=== PATIENT | female | born 1970 | race Caucasian/White ===

== ENCOUNTER 2020-12-20 09:43 | Outpatient (CLI) | payer OTHER, SELFPAY ==
--- NOTE | 2020-12-20 09:54 | MM_ITS ---
WS: [id number] BILATERAL DIGITAL SCREENING MAMMOGRAPHY WITH CAD CLINICAL INFORMATION: SCREENING HISTORY: Screening mammogram. No current complaints. COMPARISON: TECHNIQUE: Bilateral CC and MLO views. FINDINGS: The breasts are composed of heterogeneous fibroglandular density tissue, which can limit the detectio n of small underlying mass lesions. Biopsy clip left breast. No suspicious mass, asymmetry, calcifica tions, or architectural distortion. No evidence of malignancy. Punctate and lucent centered calcifica tions. MM/[id number] IMPRESSION: BI-RADS: 2-Benign FOLLOW UP: 1 Year Follow-up Recommend return to annual screening mammography.
== END 2020-12-20 09:44 | disposition home or self-care (01) ==
LOC: RADSHAW 09:47
PROVIDERS: PCP Family Medicine; Visit Provider Nurse Practitioner Family
DX: Z12.31 Encounter for screening mammogram for malignant neoplasm of breast (principal)
CPT/HCPCS: 77067

== ENCOUNTER 2021-09-10 11:40 | Emergency (ER) | payer MEDICAID, SELFPAY ==
[2021-09-10 12:08] VITALS: BP 141/91; PULSE 80; RESP 16; TEMP 36.8; O2SAT 98
[2021-09-10 12:19] VITALS: BP 140/99; PULSE 80; RESP 16; O2SAT 99
--- NOTE | 2021-09-10 12:22 | ED_ITS ---
HPI - Back Pain/Injury General: Chief Complaint: Back Pain/Injury Stated Complaint: MID THROUGH LOW BACK PAIN, L HIP PAIN Time Seen by Provider: 09/10/21 12:15 History of Present Illness: HPI Narrative: 51-year-old female comes in complaining of low back pain with radiation of pain to the left hip and leg at times been present for the last 6 months. She is not done anything in particular she can remember that exacerbates it or relieves it. She tried vario us [id number] medications she does not have any saddle paresthesias, she does not have any urinary retention or fecal incontinence. No recent trauma associated with any of the symptoms no sudden onset of the symptoms. It has slowly and progressively worsened. She has not previously been seen or evaluated as an outpatient for this. MD elicited complaint: back pain Pertinent past history: prior back pain Onset (ago): month(s) Timing: intermittent Severity: moderate Similar Symptoms Previously: Yes Quality: sharp Location: lumbar spine Radiation: left upper leg and left leg below the knee Exacerbating factors: sitting upright and walking Relieving factors: supine Associated symptoms: Deny abdominal pain, arthralgias, chills, change in bowel habits, difficulty walking, dysuria, fatigue, fecal incontinence, fever(s), hematuria, myalgias, nausea, numbness, syncope, tingling/numbness/burning, urinary frequency, urinary urgency, vomiting or weakness Treatments prior to arrival: NSAIDS Work related injury: No Review of Systems Const: Denies: fever(s), chills or fatigue ENMT: Denies: throat pain, ear or mastoid pain, nasal discharge or nasal congestion Card: Denies: syncope Resp: Denies: dyspnea, productive cough or non-productive cough GI: Denies: abdominal pain, nausea, vomiting, fecal incontinence or change in bowel habits : Denies: dysuria, urinary urgency or hematuria Skin/Breast: Denies: rash or pruritus Neuro: Denies: difficulty walking PFSH ED PFSH: Medical History (Updated 09/13/21 @ 15:33 by Manoj Peterson DO) Chronic low back pain Surgical History (Updated 09/13/21 @ 15:33 by Manoj Peterson DO) No significant past surgical history Social History (Updated 09/13/21 @ 15:33 by Manoj Peterson DO) Smoking and tobacco status: never smoked Alcohol intake: never Physical Exam Const: COMMON NORMALS: no acute distress GENERAL APPEARANCE: cooperative and comfortable ORIENTATION/CONSCIOUSNESS: Yes awake, Yes oriented to person, Yes oriented to place and Yes oriented to time HENMT: COMMON NORMALS: normocephalic, atraumatic, hearing grossly normal bilaterally and external ears normal HEAD & SCALP: normocephalic and atraumatic EXTERNAL EAR: Yes external ears normal Resp: COMMON NORMALS: normal respiratory effort, No retractions, No use of accessory muscles and clear to auscultation bilaterally AUSCULTATION: clear to auscultation bilaterally Cardio: COMMON NORMALS: regular rate, regular rhythm and No murmurs present (Cardio) RATE: regular rate RHYTHM: regular rhythm GI: COMMON NORMALS: Soft to palpation and No hepatosplenomegaly present AUSCULTATION: Yes normoactive bowel sounds PALPATION: Yes Soft to palpation, No Tenderness to palpation present (GI), No Guarding due to palpation present (GI) and Yes No hepatosplenomegaly present Extremity: COMMON NORMALS: normal to inspection, capillary refill normal, no clubbing, cyanosis or edema, no calf tenderness and no pedal edema Neuro: SENSORIUM/ORIENTATION: Yes oriented to person, Yes oriented to place and Yes oriented to time OTHER: DTRs reactive bilaterally, sensation normal, neurovasular intact.muscle strength 5/5 Skin: COMMON NORMALS: no rashes or lesions noted GENERAL SKIN EXAM: no rashes or lesions noted Course Vital Signs: Vital signs: Vital Signs Temperature 98.3 F 09/10/21 12:08 Pulse Rate 80 09/10/21 12:19 Respiratory Rate 16 09/10/21 12:19 Blood Pressure 140/99 09/10/21 12:19 Pulse Oximetry 99 09/10/21 12:19 MDM - Back Pain/Injury MDM Narrative: Medical decision making narrative: No findings suggestive of cauda equina syndrome. Patient has no saddle paresthesias no fecal incontinence no urinary retention this been a long ongoing thing we will start her on anti- inflammatories and steroids. Refer her to primary care. Discharge Plan Discharge Patient Disposition: Home Clinical Impression: Chronic low back pain Condition: Stable Prescriptions: New diclofenac sodium 75 mg tablet,delayed release (DR/EC) 75 mg PO Q12H PRN (Reason: pain) Qty: 20 RF: 0 tizanidine 4 mg capsule 4 mg PO Q8H PRN (Reason: muscle spasticity) Qty: 20 RF: 0 prednisone 20 mg tablet 20 mg PO BID Qty: 15 RF: 0 Discharge Orders: Discharge ED (Routine); Ordered 09/10/21 Ordered By: Manoj Peterson Referrals: Chaitanya Brown MD [Primary Care Provider] - Discharge Diet: Usual diet Discharge Activity: Limit activity as instructed Patient Instructions: Opioid Safety Activity Restrictions/Additional Instructions: Avoid stooping or bending avoid lifting over 10 pounds. senior property manager will make arrangements for you to see your primary care physician to work-up the chronic back pain as an outpatient. Coding Level of Care Code ED Document Management Technician for Chg Fwd Exam Detailed
--- NOTE | 2021-09-14 14:01 | DCPLANNER ---
manager generation had message to speak with patient about getting established with a primary care physician. manager generation called phone number [phone], unable to speak with patient and unable to leave a voicemail for patient.
== END 2021-09-10 12:46 | disposition home or self-care (01) ==
PROVIDERS: Emergency Provider Family Medicine; PCP Family Medicine
DX: G89.29 Other chronic pain (principal); M54.50 Low back pain, unspecified
CPT/HCPCS: 99282; 99291

== ENCOUNTER 2021-09-22 11:51 | Outpatient (CLI) | payer MEDICAID, SELFPAY ==
--- NOTE | 2021-09-22 12:12 | XR_ITS ---
WS: [id number] XR hip LT 2-3V wo/w pel* [id number] REASON FOR EXAM: LUMBAGO W/SCIATICA L SIDE FINDINGS: No fracture or focal bone abnormality. Left hip joint space is relatively well preserved. Minimal subchondral sclerosis and osteophyte formation of the acetabulum. No soft tissue abnormality. XR/XR hip LT 2-3V wo/w pel* [id number] IMPRESSION: Minimal change of osteoarthritis in the left hip.
--- NOTE | 2021-09-22 12:12 | XR_ITS ---
WS: [id number] XR lumbar spine 6V w f/e [id number] REASON FOR EXAM: LUMBAGO W/SCIATICA L SIDE FINDINGS: Mild rotatory scoliosis convex right. No significant vertebral body compression deformity or other focal vertebral body abnormality. Mild narrowing of the intervertebral disc spaces L1-L5. L5-S1 is well preserved. 6 mm of anterolisthesis of L4 in relation to L3. 5 mm of anterolisthesis of L3 in relation to L2. No spondylolysis. No significant vertebral body movement with flexion or extension. XR/XR lumbar spine 6V w f/e [id number] IMPRESSION: Degenerative spondylosis as above.
== END 2021-09-22 11:52 | disposition home or self-care (01) ==
LOC: RAD 12:05
PROVIDERS: PCP Family Medicine; Visit Provider Nurse Practitioner Family
DX: M54.42 Lumbago with sciatica, left side (principal); M47.816 Spondylosis without myelopathy or radiculopathy, lumbar region
CPT/HCPCS: 72114; 73502

== ENCOUNTER 2022-01-05 13:45 | Outpatient (CLI) | payer MEDICAID, SELFPAY ==
--- NOTE | 2022-01-05 13:54 | XRR_ITS ---
PROCEDURE INFORMATION: Exam: XR Right Knee Exam date and time: 01/05/2022 2:01 PM Age: 51 years old Clinical indication: Patient HX: History--pain in right knee; Additional info: Pain in R knee TECHNIQUE: Imaging protocol: XR Right knee. Views: 3 views. COMPARISON: No relevant prior studies available. FINDINGS: Bones/joints: There is no knee joint effusion. The joint spaces are maintained. There is no intra-articular body. No acute fracture or dislocation. No chondrocalcinosis. Soft tissues: There is no foreign body. XR/XR knee RT 3V* [id number] IMPRESSION: No acute bony abnormality.
== END 2022-01-05 13:46 | disposition home or self-care (01) ==
PROVIDERS: PCP Family Medicine; Visit Provider Nurse Practitioner Family
DX: M25.561 Pain in right knee (principal)
CPT/HCPCS: 73562

== ENCOUNTER 2022-07-27 15:41 | Outpatient (CLI) | payer MEDICAID, SELFPAY ==
--- NOTE | 2022-07-27 15:52 | XR_ITS ---
WS: [id number] Exam: XR lumbar spine 2-3V* [id number] Date/Time of Exam: 07/27/2022 3:58 PM Reason For Exam: LOW BACK PAIN Comparison 09/22/2021. No fracture or dislocation. Spondylosis. Degenerative disc narrowing from L1 to L5. Mild degenerative retrolisthesis of L2 on L3 and L3 on L4. Slight dextroscoliosis. Facet arthropathy at L4-5 and L5-S1 . 4 mm calcification superimposing the right kidney probably a renal stone. XR/XR lumbar spine 2-3V* [id number] IMPRESSION: 1. No acute fracture or malalignment. 2. Degenerative changes as detailed above. Mild scoliosis. 3. Probable right renal stone.
== END 2022-07-27 15:42 | disposition home or self-care (01) ==
PROVIDERS: PCP Nurse Practitioner Family; Visit Provider Nurse Practitioner Family
DX: M47.896 Other spondylosis, lumbar region (principal); M41.86 Other forms of scoliosis, lumbar region; M54.50 Low back pain, unspecified
CPT/HCPCS: 72100

== ENCOUNTER 2022-08-15 07:14 | Outpatient (CLI) | payer MEDICAID, SELFPAY ==
[2022-08-15 08:06] LABS: Estmated Average Glucose 108; Hemoglobin A1C 5.4 % (4.0-6.0)
[2022-08-15 08:07] LABS: Chol HDL Ratio 4.59 mg/dL (0.0-4.40); Cholesterol 211 mg/dL (0-200); HDL Cholesterol 46 mg/dL (60-100); LDL Cholesterol Calculated 144 mg/dL (50-129); LDL HDL Ratio 3.13 RATIO (0.00-3.22); Thyroid Stimulating Hormone 3.15 uIU/mL (0.27-4.20); Triglycerides 104 mg/dL (0-150)
== END 2022-08-15 07:15 | disposition home or self-care (01) ==
LOC: LAB 07:17
PROVIDERS: PCP Nurse Practitioner Family; Visit Provider Nurse Practitioner Family
DX: Z01.812 Encounter for preprocedural laboratory examination (principal); Z13.6 Encounter for screening for cardiovascular disorders
CPT/HCPCS: 36415; 80061; 83036; 84443

== ENCOUNTER 2022-08-17 10:55 | Outpatient (CLI) | payer MEDICAID, SELFPAY | END 2022-08-17 10:56 | disposition home or self-care (01) | LOC: SLEEP 08-18 10:56 | PROVIDERS: PCP Nurse Practitioner Family; Visit Provider Nurse Practitioner Family | DX: E66.9 Obesity, unspecified (principal) | CPT/HCPCS: G0399 ==

== ENCOUNTER 2022-10-05 08:03 | Outpatient (CLI) | payer MEDICAID, SELFPAY | END 2022-10-05 08:04 | disposition home or self-care (01) | LOC: RT 08:03 | PROVIDERS: PCP Nurse Practitioner Family; Visit Provider Family Medicine | DX: Z01.818 Encounter for other preprocedural examination (principal) | CPT/HCPCS: 94010; 94726; 94729 ==

== ENCOUNTER 2022-10-17 20:00 | Outpatient (CLI) | payer MEDICAID, SELFPAY | END 2022-10-17 20:01 | disposition home or self-care (01) | LOC: SLEEP 10-18 04:09 | PROVIDERS: PCP Nurse Practitioner Family; Visit Provider Nurse Practitioner Family | DX: G47.33 Obstructive sleep apnea (adult) (pediatric) (principal) | CPT/HCPCS: 95811 ==

== ENCOUNTER 2022-11-01 11:20 | Outpatient (CLI) | payer MEDICAID, SELFPAY ==
--- NOTE | 2022-11-01 11:28 | MM_ITS ---
WS: [id number] VIEWS: MLO and CC views both breasts. 3D digital tomosynthesis is also included in this exam. Comparison made with prior exam of 01/24/2012, 02/09/2014, 09/21/2017, 12/20/2020.. Findings: There was no sign of mass, architectural distortion or suspicious calcification in either breast. He terogeneously dense MM/[place] [id number] Impression: BI-RADS: 2-Benign FOLLOW-UP: 1 Year Follow-up This mammogram was also analyzed by the Computer Aided Detection System R2 Imag e Sustainability Purchasing Agent.
== END 2022-11-01 11:21 | disposition home or self-care (01) ==
LOC: RAD 11:23
PROVIDERS: PCP Nurse Practitioner Family; Visit Provider Nurse Practitioner Family
DX: Z12.31 Encounter for screening mammogram for malignant neoplasm of breast (principal)
CPT/HCPCS: 77063; 77067

== ENCOUNTER 2023-07-04 09:33 | Outpatient (CLI) | payer MEDICAID, SELFPAY ==
[2023-07-04 10:08] LABS: Basophils % 0.4 %; Eosinophils % 0.7 %; Hematocrit 37.1 % (36-47); Lymphocytes % 21.3 %; Mean Corpuscular HGB Conc 33.4 g/dL (30-55); Mean Corpuscular Hemoglobin 31.6 pg (27-33); Mean Corpuscular Volume 94.6 fl (85-98); Mean Platelet Volume 9.6 fL (7.4-10.4); Monocytes # 0.2 10^3/uL (0.2-0.9); Monocytes % 4.4 %; Neutrophils # 3.32 10^3/uL (1.8-7.7); Nucleated Red Blood Cells % 0 %; Platelet Count 237 10^3/cmm (157-399); Red Blood Count 3.92 10^6/uL (3.85-5.65); Red Cell Distribution Width 13.2 % (12.1-15.1); White Blood Count 4.55 10^3/uL (3.29-11.43)
[2023-07-04 10:43] LABS: Alanine Aminotransferase 23 U/L (0-33); Albumin Level 4.4 g/dL (3.5-5.2); Alkaline Phosphatase 32 U/L (35-105); Anion Gap 13.9 (5-19); Aspartate Amino Transferase 18 U/L (0-32); Blood Urea Nitrogen 11 mg/dL (6-20); Calcium 9.5 mg/dL (8.5-10.5); Calcium 9.6 mg/dL (8.5-10.5); Carbon Dioxide 27 mmol/L (22-29); Chloride 103 mmol/L (98-107); Chol HDL Ratio 4.37 mg/dL (0.0-4.40); Cholesterol 223 mg/dL (0-200); Ferritin 243 ng/mL (15-150); Globulin 2.5 g/dL (1.3-4.6); Glomerular Filtration Rate 128.6 mL/min (90-130); Glucose 104 mg/dL (65-115); HDL Cholesterol 51 mg/dL (60-100); Iron 85 ug/dL (37-145); LDL Cholesterol Calculated 152 mg/dL (50-129); LDL HDL Ratio 2.98 RATIO (0.00-3.22); Magnesium 2.1 mg/dL (1.7-2.3); Osmolality Calculated 290 mOsm/kg (285-295); Parathyroid Hormone 34.7 pg/mL (15-65); Potassium 3.9 mmol/L (3.5-5.1); Sodium 140 mmol/L (136-145); Total Bilirubin 0.3 mg/dL (0.15-1.2); Total Protein 6.9 g/dL (6.6-8.7); Triglycerides 101 mg/dL (0-150)
[2023-07-04 10:57] LABS: Estmated Average Glucose 94; Hemoglobin A1C 4.9 % (4.0-6.0)
[2023-07-04 10:58] LABS: 25 Hydroxy Vitamin D 51 ng/mL (30-100); Vitamin B12 1192 pg/mL (232-1245)
[2023-07-04 11:07] LABS: Folate Level > 20.0 ng/mL (4.8-37.3)
[2023-07-04 11:50] LABS: Percent Saturation 38.4 % (20-50); Total Iron Binding Capacity 221 mcg/dl; Unsaturated Iron Binding 136 ug/dL (112-347)
[2023-07-07 22:50] LABS: Vitamin K 865 pg/mL (130-1500)
[2023-07-09 21:29] LABS: Copper Level 101 mcg/dL (70-175)
[2023-07-13 10:33] LABS: Alpha-Tocopherol 23.9 mg/L; Beta-Gamma-Tocopherol 1.3 mg/L (<4.4); Vitamin A (Retinol) 71 mcg/dL (38-98)
== END 2023-07-04 09:34 | disposition home or self-care (01) ==
LOC: LAB 09:36
PROVIDERS: PCP Nurse Practitioner Family; Visit Provider Nurse Practitioner Family
DX: K91.2 Postsurgical malabsorption, not elsewhere classified (principal); Z98.84 Bariatric surgery status
CPT/HCPCS: 36415; 80053; 80061; 82306; 82310; 82525; 82607; 82728; 82746; 83036; 83540; 83550; 83735; 83970; 84100; 84446; 84590; 84597; 85025

== ENCOUNTER 2023-11-16 13:50 | Outpatient (CLI) | payer MEDICAID, SELFPAY ==
--- NOTE | 2023-11-16 14:05 | MM_ITS ---
WS: [id number] BILATERAL 3D TOMOSYNTHESIS DIGITAL SCREENING MAMMOGRAPHY WITH CAD CLINICAL INFORMATION: SCREENING HISTORY: Screening mammogram. No current complaints. COMPARISON: 2022 TECHNIQUE: Bilateral CC and MLO views. FINDINGS: The breasts are composed of heterogeneous fibroglandular density tissue, which can limit the detectio n of small underlying mass lesions. No suspicious mass, asymmetry, calcifications, or architectural d istortion. No evidence of malignancy. Incidental punctate and lucent centered calcifications. Secreto ry calcifications. Biopsy marker LEFT breast. IMPRESSION: MM/[place] [id number] BI-RADS: 2-Benign FOLLOW UP: 1 Year Follow-up Recommend return to annual screening mammography.
== END 2023-11-16 13:51 | disposition home or self-care (01) ==
LOC: RAD 13:52
PROVIDERS: PCP Nurse Practitioner Family; Visit Provider Family Medicine
DX: Z12.31 Encounter for screening mammogram for malignant neoplasm of breast (principal)
CPT/HCPCS: 77063; 77067